=== PATIENT | female | born 1980 | race Caucasian/White ===

== ENCOUNTER 2021-09-03 08:02 | Outpatient (CLI) | payer BC, SELFPAY ==
[2021-09-03 14:26] LABS: Albumin* 4.1 g/dL (3.3-5.0); Chloride* 108 mmol/L (96-114)
[2021-09-03 14:27] LABS: Potassium* 4.3 mmol/L (3.6-5.1); Sodium* 138 mmol/L (135-149)
[2021-09-03 14:29] LABS: Alanine Aminotransferase* 24 U/L (4-35); Alkaline Phosphatase* 85 U/L (40-150); Aspartate Amino Transferase* 25 U/L (12-35); Bilirubin Total* 0.2 mg/dL (0.1-1.5); Blood Urea Nitrogen* 9 mg/dL (5-24); Calcium* 9.3 mg/dL (8.4-10.6); Carbon Dioxide* 20 mmol/L (20-32); Cholesterol* 155 mg/dL (90-199); Creatinine* 0.5 mg/dL (0.5-1.5); Estimated Glomerular Filt Rate 119 ml/min; Glucose* 165 mg/dL (60-115); Total Protein* 6.7 g/dL (6.0-8.3); Triglycerides* 353 mg/dL (40-149)
[2021-09-03 14:30] LABS: HDL Cholesterol* 30 mg/dL (>=50); LDL Cholesterol Calculated 54 mg/dL (<100)
== END 2021-09-03 08:03 | disposition home or self-care (01) ==
LOC: LKVREF 08:03
PROVIDERS: PCP Family Medicine; Visit Provider Family Medicine
DX: E13.9 Other specified diabetes mellitus without complications (principal); E78.5 Hyperlipidemia, unspecified; E66.9 Obesity, unspecified; Z13.0 Encounter for screening for diseases of the blood and blood-forming organs and certain disorders involving the immune mechanism
CPT/HCPCS: 80053; 80061

== ENCOUNTER 2022-08-12 14:27 | Outpatient (CLI) | payer BC, SELFPAY ==
--- NOTE | 2022-08-12 14:40 | CRLHL7_ITS ---
For Patients: As a result of the Century Cures Act, medical imaging exams and procedure reports are released immediately into your electronic medical record. You may view this report before your referring provider. If you have questions, please contact your health care provider. BILATERAL DIGITAL SCREENING MAMMOGRAM WITH COMPUTER-AIDED DETECTION CLINICAL HISTORY: Routine screening exam. COMPARISON: 08/01/2021, 05/31/2020, 03/29/2018, 03/22/2018. TECHNIQUE: Digital mammogram in CC and MLO projections including computer-aided detection (CAD). BREAST COMPOSITION: There are scattered areas of fibroglandular density FINDINGS: RIGHT Breast: Focal asymmetric density within the lower outer quadrant 6 cm from the nipple. LEFT Breast: No suspicious findings. IMPRESSION: RIGHT breast asymmetry/mass. RECOMMENDATIONS: Additional mammographic views of the RIGHT breast including 3D spot-compression CC/MLO. RIGHT breast ultrasound may also be required. [facility] will contact the patient for follow-up. BI-RADS Category 0: Incomplete: Need Additional Imaging Evaluation and/or Prior Mammograms for Comparison Dictated by Wesly Mireles MD @ 08/13/2022 1:13:59 PM/kyleigh KELL/Dictated by: Wesly Mireles MD @ 08/13/2022 1:13:00 PM (Electronically Signed)
== END 2022-08-12 14:28 | disposition home or self-care (01) ==
LOC: MAMMO 14:28
PROVIDERS: PCP Family Medicine; Visit Provider Family Medicine
DX: Z12.31 Encounter for screening mammogram for malignant neoplasm of breast (principal); N63.10 Unspecified lump in the right breast, unspecified quadrant
CPT/HCPCS: 77063; 77067

== ENCOUNTER 2022-08-28 10:24 | Outpatient (CLI) | payer BC, SELFPAY ==
--- NOTE | 2022-08-28 10:45 | CRLHL7_ITS ---
For Patients: As a result of the Century Cures Act, medical imaging exams and procedure reports are released immediately into your electronic medical record. You may view this report before your referring provider. If you have questions, please contact your health care provider. DIGITAL DIAGNSOTIC RIGHT MAMMOGRAM USING TOMOSYNTHESIS AND COMPUTER-AIDED DETECTION INDICATION: 42-year-old asymptomatic female. Follow-up an asymmetric density in the inferolateral RIGHT breast seen on recent mammogram 08/12/2022. TECHNIQUE: View of the RIGHT breast in the CC and MLO projection. Digital breast tomosynthesis utilized. CAD utilized. COMPARISON: 08/12/2022. FINDINGS: Breast Composition: There are scattered areas of fibroglandular density. Within the central inferior/inferolateral RIGHT breast there is a questionable faint persistent density possibly reflective of asymmetric breast tissue. Ultrasound will be performed for further evaluation. IMPRESSION: Questionable faint persistent density inferolateral RIGHT breast between the 6 and 7 o`clock position. ULTRASOUND FINDINGS: Technique: Directed RIGHT breast ultrasound with this radiologist present. The RIGHT breast is carefully scanned between the 6 o`clock and 9 o`clock position. Chronic Specialist images were obtained. Only normal moderately dense breast tissue is identified. There is a single tiny lactiferous duct in the inferolateral RIGHT breast at approximately the 7 o`clock position. This is of no clinical significance. These findings were discussed briefly with the patient. Annual mammography is recommended. BI-RADS Category 1: Negative A lay language report of this examination will be provided to the patient. Dictated by: Kodak Walsh MD @08/28/2022 11:30:34 AM jj/Dictated by: Kodak Walsh MD @ 08/28/2022 11:29:00 AM (Electronically Signed)
--- NOTE | 2022-08-28 11:15 | CRLHL7_ITS ---
For Patients: As a result of the Cures Act, medical imaging exams and procedure reports are released immediately into your electronic medical record. You may view this report before your referring provider. If you have questions, please contact your health care provider. PLEASE SEE DIGITAL DIAGNOSTIC RIGHT MAMMOGRAM PERFORMED SAME DAY CRL:[email or web address] [email or web address]/Dictated by: Kodak Walsh MD @ 08/28/2022 11:46:00 AM (Electronically Signed)
== END 2022-08-28 10:25 | disposition home or self-care (01) ==
LOC: MAMMO 10:24
PROVIDERS: PCP Family Medicine; Visit Provider Family Medicine
DX: R92.8 Other abnormal and inconclusive findings on diagnostic imaging of breast (principal)
CPT/HCPCS: 76642; 77065; G0279

== ENCOUNTER 2023-05-17 11:25 | Outpatient (CLI) | payer BC, SELFPAY | END 2023-05-17 11:26 | disposition home or self-care (01) | LOC: NFLDREF 05-25 08:54 | PROVIDERS: PCP Family Medicine; Referring Provider Family Medicine; Visit Provider Nurse Practitioner Family | DX: N30.90 Cystitis, unspecified without hematuria (principal) | CPT/HCPCS: 87086 ==

== ENCOUNTER 2023-09-23 10:04 | Outpatient (CLI) | payer BC, SELFPAY ==
--- NOTE | 2023-09-23 10:15 | CRLHL7_ITS ---
For Patients: As a result of the Cures Act, medical imaging exams and procedure reports are released immediately into your electronic medical record. You may view this report before your referring provider. If you have questions, please contact your health care provider. BILATERAL SCREENING MAMMOGRAM WITH COMPUTER-AIDED DETECTION AND TOMOSYNTHESIS TECHNIQUE: CC and MLO views were obtained. These mammographic images have been obtained using full-field digital technique. These mammographic images were interpreted with the benefit of computer-aided detection. Breast Tomosynthesis was used in this interpretation. COMPARISON FILM: 08/12/22, 08/01/21, 05/31/20. FINDINGS: There are scattered areas of fibroglandular density IMPRESSION: There is no radiographic evidence for malignancy. ASSESSMENT: BI-RADS Category 1: Negative RECOMMENDATION: Routine screening mammogram in 1 year. A lay language report of this examination will be provided to the patient. Wesly Mireles M.D. Diagnostic Radiologist [email or web address] ANURADHA/[email or web address] Transcribed: 6:38 p.mEd [email or web address]/Dictated by: Wesly Mireles MD @ 09/23/2023 12:11:00 PM (Electronically Signed)
== END 2023-09-23 10:05 | disposition home or self-care (01) ==
LOC: MAMMO 10:05
PROVIDERS: PCP Family Medicine; Visit Provider Family Medicine
DX: Z12.31 Encounter for screening mammogram for malignant neoplasm of breast (principal)
CPT/HCPCS: 77063; 77067

== ENCOUNTER 2024-01-03 16:59 | Outpatient (CLI) | payer BC, SELFPAY | END 2024-01-03 17:00 | disposition home or self-care (01) | LOC: NFLDREF 01-05 11:41 | PROVIDERS: PCP Family Medicine; Referring Provider Family Medicine; Visit Provider Physician Assistant Medical | DX: R31.9 Hematuria, unspecified (principal) | CPT/HCPCS: 87086 ==

== ENCOUNTER 2024-01-10 13:39 | Outpatient (CLI) | payer BC, SELFPAY ==
--- NOTE | 2024-01-10 14:00 | CRLHL7_ITS ---
For Patients: As a result of the Century Cures Act, medical imaging exams and procedure reports are released immediately into your electronic medical record. You may view this report before your referring provider. If you have questions, please contact your health care provider. INDICATION: Hematuria TECHNIQUE: CT abdomen and pelvis without contrast, stone protocol. COMPARISON: None FINDINGS: Kidney/ureters: 2 stones in the distal left ureter measuring 12 x 6 mm and 10 x 4 mm. These cause right-sided hydronephrosis. No other nephrolithiasis. Left kidney is normal. Liver/gallbladder/bile ducts: Hepatic steatosis. Gallbladder and bile ducts appear normal. Spleen/pancreas/adrenal glands: The spleen, adrenal glands and pancreas are within normal limits. GI tract: The bowel is unremarkable. Abdominal wall/omentum/peritoneum: No free air or significant free fluid. No mass or inflammation. Lymph nodes: No lymphadenopathy. Pelvis: Uterus is enlarged, probably due to leiomyomas. Lower chest: Unremarkable. Bones: Benign-appearing bone island in the left iliac bone. IMPRESSION: 1. Two obstructing stones in the distal right ureter. 2. Uterine enlargement, likely due to leiomyomas. Recommend pelvic ultrasound for evaluation. Please note that all CT scans at this facility use dose modulation, iterative reconstruction, and/or weight-based dosing when appropriate to reduce radiation dose to as low as reasonably achievable. Dictated by Beto Hamilton MD @ 01/11/2024 3:28:54 PM (Electronically Signed)
== END 2024-01-10 13:40 | disposition home or self-care (01) ==
PROVIDERS: PCP Family Medicine; Visit Provider Physician Assistant Medical
DX: R31.9 Hematuria, unspecified (principal); N20.1 Calculus of ureter; N85.2 Hypertrophy of uterus
CPT/HCPCS: 74176

== ENCOUNTER 2024-02-15 08:56 | Outpatient (CLI) | payer BC, SELFPAY ==
[2024-02-15 14:00] LABS: Creatinine Urine 160.6 mg/dL
[2024-02-15 14:02] LABS: Microalbumin Creatinine Ratio 10 mg/g (0-30); Microalbumin Urine 3 mg/dL
== END 2024-02-15 08:57 | disposition home or self-care (01) ==
PROVIDERS: PCP Family Medicine; Visit Provider Family Medicine
DX: E13.9 Other specified diabetes mellitus without complications (principal); E78.5 Hyperlipidemia, unspecified; Z79.84 Long term (current) use of oral hypoglycemic drugs
CPT/HCPCS: 80048; 80061; 82043; 82570

== ENCOUNTER 2024-03-08 14:45 | Outpatient (CLI) | payer BC, SELFPAY | END 2024-03-08 14:46 | disposition home or self-care (01) | LOC: US 14:45 | PROVIDERS: PCP Family Medicine; Visit Provider Student in an Organized Health Care Education/Training Program | DX: N20.0 Calculus of kidney (principal) | CPT/HCPCS: 76770 ==

== ENCOUNTER 2024-04-11 09:16 | Outpatient (CLI) | payer BC, SELFPAY ==
--- NOTE | 2024-04-11 10:57 | W.ANESCHARGE ---
Anesthesia Charges Start Date/Time Anesthesia Start Date: 04/11/24 Anesthesia Start Time: 10:18 Stop Date/Time Anesthesia Stop Date: 04/11/24 Anesthesia Stop Time: 10:55 Coding CPT Codes CPT Codes: RICKY LWR INTST SCR COLSC - 69318 ([id number]) P2 - PATIENT W/MILD SYST DISEASE, QX - BUSINESS CONTINUITY PLANNER SVC W/ MD MED DIRECTION, QK - BUILDING ENERGY RETROFIT TECHNICIAN 2-4 CNCRNT ANES PROC
--- NOTE | 2024-04-11 11:06 | W.ANESCHARGE ---
Anesthesia Charges Start Date/Time Anesthesia Start Date: 04/11/24 Anesthesia Start Time: 10:18 Stop Date/Time Anesthesia Stop Date: 04/11/24 Anesthesia Stop Time: 10:55 Coding CPT Codes CPT Codes: RICKY LWR INTST SCR COLSC - 84907 ([id number]) P2 - PATIENT W/MILD SYST DISEASE, QK - AUTO ELECTRICIAN 2-4 CNCRNT ANES PROC, QX - ORCHID WORKER SVC W/ MD MED DIRECTION
== END 2024-04-11 09:17 | disposition home or self-care (01) ==
LOC: OP CLINIC 09:16
PROVIDERS: PCP Family Medicine; Visit Provider Surgery
DX: Z12.11 Encounter for screening for malignant neoplasm of colon (principal)
CPT/HCPCS: 00812; 45378; J2704

== ENCOUNTER 2024-08-17 08:40 | Outpatient (CLI) | payer BC, SELFPAY ==
[2024-08-19 08:45] LABS: HPV Source Cervical
== END 2024-08-17 08:41 | disposition home or self-care (01) ==
PROVIDERS: PCP Family Medicine; Visit Provider Physician Assistant
DX: N92.0 Excessive and frequent menstruation with regular cycle (principal); R53.83 Other fatigue; E66.9 Obesity, unspecified; Z12.4 Encounter for screening for malignant neoplasm of cervix
CPT/HCPCS: 82306; 84443; 87624; 87625; 88141; 88142

== ENCOUNTER 2024-08-21 10:32 | Outpatient (CLI) | payer BC, SELFPAY ==
--- NOTE | 2024-08-21 10:45 | CRLHL7_ITS ---
For Patients: As a result of the Century Cures Act, medical imaging exams and procedure reports are released immediately into your electronic medical record. You may view this report before your referring provider. If you have questions, please contact your health care provider. INDICATION: Enlarged uterus on CT and excessive/frequent menstruation COMPARISON: 01/10/2024 CT TECHNIQUE: 2D iraheta-scale and color Doppler images were acquired of the pelvis using a transabdominal and transvaginal approach. Transvaginal imaging performed to better visualize the endometrial stripe and ovaries. FINDINGS: Right uterine fibroid is present which measures 6.3 x 5.3 x 5.5 cm. Multiple cervical nabothian cysts measure up to 1.8 cm. Uterus measures 13.0 cm in length by 5.8 cm in AP diameter by 8.5 cm in transverse dimension. The myometrium has a heterogeneous echotexture. The endometrial lining measures 8.8 mm in composite thickness. The right ovary measures 4.0 x 2.2 x 3.0 cm in size and the left ovary measures 2.3 x 1.1 x 1.7 cm. The ovaries demonstrate normal arterial and venous blood flow on color Doppler analysis. There are no suspicious fluid collections within the cul-de-sac. Benign cystic area within the right ovary with internal echoes which measures 2.1 x 1.8 x 1.4 cm. IMPRESSION: Enlarged heterogeneous uterus with large right-sided fibroid measures 6.3 x 5.3 x 5.5 cm. Hemorrhagic right ovarian cyst measures 2.1 x 1.8 x 1.4 cm. Endometrial thickness 8.8 millimeters. Dictated by Wesly Mireles MD @ 08/21/2024 12:18:19 PM (Electronically Signed)
== END 2024-08-21 10:33 | disposition home or self-care (01) ==
LOC: US 10:33
PROVIDERS: PCP Family Medicine; Visit Provider Physician Assistant
DX: N92.0 Excessive and frequent menstruation with regular cycle (principal); N85.2 Hypertrophy of uterus; N83.201 Unspecified ovarian cyst, right side; R93.89 Abnormal findings on diagnostic imaging of other specified body structures; D25.9 Leiomyoma of uterus, unspecified
CPT/HCPCS: 76830; 76856

== ENCOUNTER 2024-11-10 15:08 | Outpatient (CLI) | payer BC, SELFPAY ==
--- NOTE | 2024-11-10 15:20 | CRLHL7_ITS ---
For Patients: As a result of the Century Cures Act, medical imaging exams and procedure reports are released immediately into your electronic medical record. You may view this report before your referring provider. If you have questions, please contact your health care provider. INDICATION: BILATERAL SCREENING MAMMOGRAM, ASYMPTOMATIC 44 Y/O FEMALE COMPARISON: 09/23/2023, 08/28/2022, 08/12/2022, TECHNIQUE: Digital mammogram in CC and MLO projections including computer-aided detection (CAD) and tomosynthesis. BREAST COMPOSITION: There are scattered areas of fibroglandular density. FINDINGS: No suspicious findings. ASSESSMENT: BI-RADS 1 Negative RECOMMENDATION: Annual screening mammogram. A lay language report of this examination will be provided to the patient. Dictated by: Farrah Salazar MD @ 11/14/2024 06:47:39 (Electronically Signed)
== END 2024-11-10 15:09 | disposition home or self-care (01) ==
LOC: MAMMO 15:09
PROVIDERS: PCP Family Medicine; Visit Provider Family Medicine
DX: Z12.31 Encounter for screening mammogram for malignant neoplasm of breast (principal)
CPT/HCPCS: 77063; 77067